=== PATIENT | female | born 1980 | race Caucasian/White ===

== ENCOUNTER 2019-02-12 03:37 | Emergency (ER) | payer OTHER ==
[~2019-02-12] VITALS: Ht 162.6 cm; Wt 111.1 kg
[2019-02-12 03:52] VITALS: BP 117/68
[2019-02-12 04:10] LABS: BILIRUBIN,URINE NEGATIVE (NEG); CLARITY,URINE CLEAR; COLOR,URINE AMBER; NITRITE,URINE NEGATIVE (NEG); PH,URINE 5.5; PROTEIN,URINE 30 mg/dL (NEG-TRACE); UROBILINOGEN,URINE 0.2 mg/dL (0.2 mg/dL)
[2019-02-12 04:21] LABS: BACTERIA,URINE FEW /HPF (0-FEW); RBC,URINE >40 /HPF (0-2); SQUAMOUS EPITHELIAL CELL,UR MOD /LPF; WBC,URINE 20-40 /HPF (0-4)
[2019-02-12 04:27] LABS: U PREG PATIENT NEGATIVE (NEG)
[2019-02-12] MEDS ORDERED: CEPH500C PO (04:35)
[2019-02-12] MEDS ORDERED: KETOROLAC 30 MG/ML VIAL. IM ONE (05:00)
[2019-02-12] MEDS ORDERED: CEPHALEXIN 250 MG CAPSULE. PO ONE (05:00)
--- NOTE | 2019-02-12 05:09 | PHYS DOC ---
Past Medical History Past Medical History: Depression Additional Past Surgical Histo: DEVIATED SEPTUM Alcohol Use: Rarely Drug Use: None Adult General Chief Complaint Chief Complaint: LOWER BACK PAIN OR INJURY HPI HPI Patient is a 38 year old f wtih back pain cramping period started two days ago back pain got worse today while working in the yard some hesitancy with urination no fever felt hot earlier no vomiting no abdo pain has been on meloxicam for low back pain in the past symptoms moderate nonradiating diffuse b/l lower back Review of Systems Review of Systems Constitutional: Eyes: Denies change in visual acuity, redness, or eye pain [] HENT: Denies nasal congestion or sore throat [] Respiratory: Denies cough or shortness of breath [] Neurologic: Denies headache, focal weakness or sensory changes [] All other systems were reviewed and found to be within normal limits, except as documented in this note. Current Medications Current Medications Current Medications Medications (Trade) Dose Ordered Sig/Brian Start Time Stop Time Status Last Admin Dose Admin Cephalexin HCl (Keflex) 500 mg 1X ONCE 02/12/19 05:00 02/12/19 05:00 DC 02/12/19 04:43 500 MG Ketorolac Tromethamine (Toradol 30mg Vial) 30 mg 1X ONCE 02/12/19 05:00 02/12/19 05:00 DC 02/12/19 04:43 30 MG Allergies Allergies Allergies Coded Allergies Type Severity Reaction Last Updated Verified codeine Allergy Intermediate 02/12/19 Yes metronidazole Allergy Intermediate 02/12/19 Yes naproxen Allergy Intermediate 02/12/19 Yes Physical Exam Physical Exam Constitutional: Well developed, well nourished, no acute distress, non-toxic appearance. [] HENT: Normocephalic, atraumatic, bilateral external ears normal, oropharynx moist, no oral exudates, nose normal. [] Eyes: PERRLA, EOMI, conjunctiva normal, no discharge. [] Neck: Normal range of motion, no tenderness, supple, no stridor. [] Lungs & Thorax: normal resp effort no incrsaed work of breathing Abdomen: Bowel sounds normal, soft, no tenderness, no masses, no pulsatile masses. [] Skin: Warm, dry, no erythema, no rash. [] Back:b/l CVA tenderness. [] Extremities: No tenderness, no cyanosis, no clubbing, ROM intact, no edema. [] Neurologic: Alert and oriented X 3, normal motor function, normal sensory function, no focal deficits noted. [] Psychologic: Affect normal, judgement normal, mood normal. [] Current Patient Data Vital Signs Vital Signs Date Time Temp Pulse Resp B/P (MAP) Pulse Ox O2 Delivery O2 Flow Rate FiO2 02/12/19 03:52 97.5 94 16 117/68 (84) 99 Room Air 97.5 Lab Values Laboratory Tests Test 02/12/19 03:40 Urine Collection Type Unknown Urine Color Basia Urine Clarity Clear Urine pH 5.5 Urine Specific [place] >=1.030 Urine Protein 30 mg/dL (NEG-TRACE) Urine Glucose (UA) Negative mg/dL (NEG) Urine Ketones (Stick) Negative mg/dL (NEG) Urine Blood Large (NEG) Urine Nitrite Negative (NEG) Urine Bilirubin Negative (NEG) Urine Urobilinogen Dipstick 0.2 mg/dL (0.2 mg/dL) Urine Leukocyte Esterase Small (NEG) Urine RBC >40 /HPF (0-2) Urine WBC 20-40 /HPF (0-4) Urine Squamous Epithelial Cells Mod /LPF Urine Bacteria Few /HPF (0-FEW) Urine Mucus Marked /LPF Urine Test Negative (NEG) EKG EKG [] Radiology/Procedures Radiology/Procedures [] Course & Med Decision Making Course & Med Decision Making Pertinent Labs and Imaging studies reviewed. (See chart for details) []38 yo f normal vitals crampy b/l low back pain on menstrual cycle upreg neg urine shows likely uti toradol, keflex return prec discussed Leland Disclaimer Leland Disclaimer This electronic medical record was generated, in whole or in part, using a voice recognition dictation system. Departure Departure Impression: Primary Impression: Urinary tract infection Disposition: 01 HOME, SELF-CARE Condition: STABLE Patient Instructions: Urinary Tract Infection, [id number] Scripts Cephalexin (CEPHALEXIN) 500 Mg Capsule 1 CAP PO QID, #28 CAP Prov: FRANCESCA LUCIANO MD 02/12/19 FRANCESCA LUCIANO MD Feb 12, 2019 05:09
== END 2019-02-12 04:45 | disposition home or self-care (01) ==
LOC: ER 03:37
DX: N39.0 Urinary tract infection, site not specified (principal); F32.9 Major depressive disorder, single episode, unspecified; Z88.8 Allergy status to other drugs, medicaments and biological substances; Z88.5 Allergy status to narcotic agent
CPT/HCPCS: 81001; 81025; 87086; 96372; 99284; J1885

== ENCOUNTER 2021-11-29 16:27 | Emergency (ER) | payer BC, OTHER ==
[~2021-11-29] VITALS: Ht 162.6 cm; Wt 110.0 kg
[~2021-11-29 16:27] MED LIST: CEPH500C PO
[2021-11-29 16:39] VITALS: BP 177/100
[2021-11-29] MEDS ORDERED: DOXY100C3 PO (16:51)
--- NOTE | 2021-11-29 16:56 | PHYS DOC ---
Past Medical History Past Medical History: Depression Past Surgical History: Other Additional Past Surgical Histo: DEVIATED SEPTUM Smoking Status: Never Smoker Alcohol Use: Rarely Drug Use: None General Adult EDM: Chief Complaint: ANIMAL BITE HPI: HPI: Patient is a 41 year old female who presents with her vaccinated cat was startled by a noise and ended up biting her on the left dorsal wrist/lower forearm area. There are 5 puncture wounds. Patient immediately flushed with soap and water and cleaned with peroxide and chlorhexidine. Patient then placed mupirocin ointment. Hypertension history. Rates her pain at a 5 out of 10. Denies focal weakness, numbness and tingling. Review of Systems: Review of Systems: Constitutional: Denies fever or chills. [] Eyes: Denies change in visual acuity. [] HENT: Denies nasal congestion or sore throat. [] Respiratory: Denies cough or shortness of breath. [] Cardiovascular: Denies chest pain or edema. [] GI: Denies abdominal pain, nausea, vomiting, bloody stools or diarrhea. [] : Denies dysuria. [] Musculoskeletal: Denies back pain or joint pain. + Left arm pain [] Integument: Denies rash. + Cat bite [] Neurologic: Denies headache, focal weakness or sensory changes. [] Endocrine: Denies polyuria or polydipsia. [] Lymphatic: Denies swollen glands. [] Psychiatric: Denies depression or anxiety. [] Heart Score: C/O Chest Pain: No Allergies: Allergies: Allergies Coded Allergies Type Severity Reaction Last Updated Verified amoxicillin Allergy Severe 11/29/21 Yes clavulanic acid Allergy Severe 11/29/21 Yes codeine Allergy Intermediate 02/12/19 Yes naproxen Allergy Intermediate 02/12/19 Yes Physical Exam: PE: Constitutional: Well developed, well nourished, no acute distress, non-toxic appearance. [] HENT: Normocephalic, atraumatic, bilateral external ears normal, oropharynx moist, no oral exudates, nose normal. [] Eyes: PERRLA, EOMI, conjunctiva normal, no discharge. [] Neck: Normal range of motion, no tenderness, supple, no stridor. [] Cardiovascular:Heart rate regular rhythm, no murmur [] Lungs & Thorax: Bilateral breath sounds clear to auscultation [] Abdomen: Bowel sounds normal, soft, no tenderness, no masses, no pulsatile masses. [] Skin: Warm, dry, no erythema, no rash. 5 very small puncture wounds to the dorsal left forearm. [] Back: No tenderness, no CVA tenderness. [] Extremities: Left dorsal wrist/lower forearm tenderness, no cyanosis, no clubbing, ROM intact, left dorsal wrist/lower forearm 2+ edema. [] Neurologic: Alert and oriented X 3, normal motor function, normal sensory function, no focal deficits noted. [] Psychologic: Affect normal, judgement normal, mood normal. [] Current Patient Data: Vital Signs: Vital Signs Date Time Temp Pulse Resp B/P (MAP) Pulse Ox O2 Delivery O2 Flow Rate FiO2 11/29/21 16:39 98.2 112 20 177/100 (125) 100 98.2 EKG: EKG: [] Radiology/Procedures: Radiology/Procedures: [] Course & Med Decision Making: Course & Med Decision Making Pertinent Labs and Imaging studies reviewed. (See chart for details) See HPI. Alert and orient x4. Ambulatory steady gait. Speaks in full clear sentences. Patient is allergic to penicillins so I will not give her Augmentin but I will give her doxycycline. Bleeding is stopped. Tenderness and swelling over the area of the bite on the left dorsal forearm. Full range of motion of the wrist. Cap refill less than 2 seconds. Radial pulse strong and present. Full strength and manager of internal audit. No signs of infection at this time. Patient is given a tetanus shot. [] Dragon Disclaimer: Dragon Disclaimer: This electronic medical record was generated, in whole or in part, using a voice recognition dictation system. Departure Departure Impression: Primary Impression: Cat bite of forearm Qualified Codes: S51.852A - Open bite of left forearm, initial encounter; W55.01XA - Bitten by cat, initial encounter Disposition: HOME / SELF CARE / HOMELESS Condition: STABLE Referrals: FRANKIE RIVERA (PCP) Patient Instructions: Animal Bite Additional Instructions: Watch for signs of infection such as redness, drainage, increased pain, fever. Take medication as prescribed and with food. Follow-up with your primary care physician if you are not any better in the next 48 hours or he can come back here for a wound recheck. Ibuprofen for pain. Can also use ice to help with swelling. Scripts Doxycycline Hyclate (DOXYCYCLINE HYCLATE) 100 Mg Capsule 1 CAP PO BID, #20 CAP Prov: SETH NGUYEN APRN 11/29/21 SETH NGUYEN APRN November 29, 2021 16:56
[2021-11-29] MEDS ORDERED: DIPHTH,PERTUSS(ACELL),TET TOX 0.5 ML DISP.SYRIN. VAX IM ONE (17:00)
== END 2021-11-29 17:13 | disposition home or self-care (01) ==
LOC: ER 16:27
DX: S51.852A Open bite of left forearm, initial encounter (principal); Z88.1 Allergy status to other antibiotic agents; Z88.5 Allergy status to narcotic agent; Z88.8 Allergy status to other drugs, medicaments and biological substances; W55.01XA Bitten by cat, initial encounter; Y93.89 Activity, other specified; Y92.89 Other specified places as the place of occurrence of the external cause; Y99.8 Other external cause status
CPT/HCPCS: 90471; 90715; 99283-25

== ENCOUNTER 2021-12-01 06:53 | Observation (INO) | payer BC ==
[~2021-12-01] VITALS: Ht 162.6 cm; Wt 118.5 kg
[~2021-12-01 06:53] MED LIST changes: +DOXY100C3 PO
[2021-12-01] MEDS ORDERED: AMPICILLIN/SULBACTAM 3 GM in IV NORMAL SALINE 100ML 100 ML IV ONE (07:15)
--- NOTE | 2021-12-01 07:25 | PHYS DOC ---
Past Medical History Past Medical History: Depression Past Surgical History: Other Additional Past Surgical Histo: DEVIATED SEPTUM Smoking Status: Never Smoker Alcohol Use: None Drug Use: None General Adult EDM: Chief Complaint: WOUND RECHECK/SUTURE REMOVAL HPI: HPI: Patient is a 41 year old female who presents to the emergency department for reevaluation of a cat bite. Patient states that her cat bit her on the left wrist on Tuesday. She presented here to the emergency department and at that time had her tetanus updated, and was given Keflex and a prescription for doxycycline. She states she has been taking her doxycycline but this morning woke up with a significant increase in pain and noticed some surrounding redness to the bite area. Given this she decided to present to the emergency department for evaluation. She denies having any fevers or chills. She denies any nausea or vomiting. She denies any swollen lymph nodes. Review of Systems: Review of Systems: Constitutional: Denies fever or chills. [] Eyes: Denies change in visual acuity. [] HENT: Denies nasal congestion or sore throat. [] Respiratory: Denies cough or shortness of breath. [] Cardiovascular: Denies chest pain or edema. [] GI: Denies abdominal pain, nausea, vomiting, bloody stools or diarrhea. [] : Denies dysuria. [] Musculoskeletal: Denies back pain. [] Integument: Denies rash. [] Neurologic: Denies headache, focal weakness or sensory changes. [] Endocrine: Denies polyuria or polydipsia. [] Lymphatic: Denies swollen glands. [] Psychiatric: Denies depression or anxiety. [] Heart Score: C/O Chest Pain: No Family History: Family History: Noncontributory Current Medications: Current Medications Medications (Trade) Dose Ordered Sig/Brian Start Time Stop Time Status Last Admin Dose Admin Ampicillin Sodium/ Sulbactam Sodium 3 gm/Sodium Chloride 100 ml @ 200 mls/hr 1X ONCE 12/01/21 07:15 12/01/21 07:44 UNV Allergies: Allergies: Allergies Coded Allergies Type Severity Reaction Last Updated Verified amoxicillin Allergy Severe 11/29/21 Yes clavulanic acid Allergy Severe 11/29/21 Yes codeine Allergy Intermediate 02/12/19 Yes naproxen Allergy Intermediate 02/12/19 Yes Physical Exam: PE: Constitutional: Well developed, well nourished, no acute distress, non-toxic appearance. [] HENT: Normocephalic, atraumatic, bilateral external ears normal, oropharynx moist, no oral exudates, nose normal. [] Eyes: PERRLA, EOMI, conjunctiva normal, no discharge. [] Neck: Normal range of motion, no tenderness, supple, no stridor. [] Cardiovascular:Heart rate regular rhythm, no murmur [] Lungs & Thorax: Bilateral breath sounds clear to auscultation [] Abdomen: Bowel sounds normal, soft, no tenderness, no masses, no pulsatile masses. [] Skin: There are 2 puncture wounds to the dorsal surface of the left wrist. There i surrounding cellulitis. Patient does have tenderness to palpation proximally to the elbow and distally to the hand. There is swelling also noted.. [] Back: No tenderness, no CVA tenderness. [] Extremities: No tenderness, no cyanosis, no clubbing, ROM intact, no edema. [] Neurologic: Alert and oriented X 3, normal motor function, normal sensory function, no focal deficits noted. [] Psychologic: Affect normal, judgement normal, mood normal. [] Current Patient Data: Labs: Laboratory Tests Test 12/01/21 07:34 White Blood Count 8.0 x10^3/uL Red Blood Count 3.98 x10^6/uL Hemoglobin 11.7 g/dL Hematocrit 34.9 % Mean Corpuscular Volume 88 fL Mean Corpuscular Hemoglobin 30 pg Mean Corpuscular Hemoglobin Concent 34 g/dL Red Cell Distribution Width 13.5 % Platelet Count 343 x10^3/uL Neutrophils (%) (Auto) 64 % Lymphocytes (%) (Auto) 29 % Monocytes (%) (Auto) 5 % Eosinophils (%) (Auto) 1 % Basophils (%) (Auto) 1 % Neutrophils # (Auto) 5.2 x10^3/uL Lymphocytes # (Auto) 2.3 x10^3/uL Monocytes # (Auto) 0.4 x10^3/uL Eosinophils # (Auto) 0.1 x10^3/uL Basophils # (Auto) 0.1 x10^3/uL Sodium Level 140 mmol/L Potassium Level 3.6 mmol/L Chloride Level 104 mmol/L Carbon Dioxide Level 24 mmol/L Anion Gap 12 Blood Urea Nitrogen 18 mg/dL Creatinine 0.8 mg/dL Estimated GFR (Cockcroft-Gault) 79.9 Glucose Level 103 mg/dL Calcium Level 8.3 mg/dL Current Medications Medications (Trade) Dose Ordered Sig/Brian Route PRN Reason Start Time Stop Time Status Last Admin Dose Admin Ampicillin Sodium/ Sulbactam Sodium 3 gm/Sodium Chloride 100 ml @ 200 mls/hr 1X ONCE IV 12/01/21 07:15 12/01/21 07:44 DC 12/01/21 08:41 Morphine Sulfate (Morphine Sulfate) 2 mg 1X ONCE IVP 12/01/21 08:45 12/01/21 08:50 DC 12/01/21 09:01 Acetaminophen (Tylenol) 650 mg PRN Q6HRS PRN PO MILD PAIN / TEMP > 100.3'F 12/01/21 09:15 12/01/21 10:15 DC Ondansetron HCl (Zofran) 4 mg PRN Q4HRS PRN IVP NAUSEA/VOMITING 12/01/21 09:15 12/01/21 10:15 DC Ondansetron HCl (Zofran Odt) 4 mg PRN Q4HRS PRN PO NAUSEA 12/01/21 09:15 12/01/21 10:15 DC Ampicillin Sodium/ Sulbactam Sodium 3 gm/Sodium Chloride 100 ml @ 200 mls/hr Q6HRS IV 12/01/21 12:00 12/01/21 10:15 DC Vital Signs: Vital Signs Date Time Temp Pulse Resp B/P (MAP) Pulse Ox O2 Delivery O2 Flow Rate FiO2 12/01/21 07:11 98.2 93 16 161/84 (109) 99 Room Air 98.2 EKG: EKG: [] Radiology/Procedures: Radiology/Procedures: EXAM: XR FOREARM_LEFT 2 VIEWS, XR HAND_LEFT 2 VIEWS 12/01/2021 7:20 AM CLINICAL INDICATION: Cat bite COMPARISON: None TECHNIQUE: AP and lateral views of the left forearm. PA and lateral views of the left hand. FINDINGS: Left forearm: No acute fracture. Alignment is normal. Joint spaces are maintained. There is no radiopaque foreign body. Left hand: No acute fracture. Alignment is normal. Joint spaces are maintained. Mild dorsal soft tissue swelling at the wrist and distal forearm. No radiopaque foreign body. IMPRESSION: No acute osseous abnormality or radiopaque foreign body. Electronically signed by: Kelly Mendoza MD (12/01/2021 7:54 AM) [facility] Course & Med Decision Making: Course & Med Decision Making Pertinent Labs and Imaging studies reviewed. (See chart for details) [] Dragon Disclaimer: Dragon Disclaimer: This electronic medical record was generated, in whole or in part, using a voice recognition dictation system. Departure Departure Impression: Primary Impression: Cat bite of forearm Additional Impression: Cellulitis of forearm Disposition: ADMITTED INPATIENT Condition: STABLE Referrals: FRANKIE RIVERA (PCP) DEREK PURCELL MD December 01, 2021 07:25
[2021-12-01 07:43] LABS: BASO # 0.1 x10^3/uL (0.0-0.2); BASO % 1 % (0-3); EOS # 0.1 x10^3/uL (0.0-0.7); EOS % 1 % (0-3); HEMATOCRIT 34.9 % (36.0-47.0); HEMOGLOBIN 11.7 g/dL (12.0-15.5); LYMPH # 2.3 x10^3/uL (1.0-4.8); LYMPH % 29 % (24-48); MEAN CORPUSCULAR HEMOGLOBIN 30 pg (25-35); MEAN CORPUSCULAR HGB CONC 34 g/dL (31-37); MEAN CORPUSCULAR VOLUME 88 fL (79-100); MONO # 0.4 x10^3/uL (0.0-1.1); MONO % 5 % (0-9); NEUT # 5.2 x10^3/uL (1.8-7.7); NEUT % 64 % (31-73); PLATELET COUNT 343 x10^3/uL (140-400); RED BLOOD COUNT 3.98 x10^6/uL (3.50-5.40); RED CELL DISTRIBUTION WIDTH 13.5 % (11.5-14.5)
[2021-12-01 07:55] LABS: CALCIUM 8.3 mg/dL (8.5-10.1); CREATININE 0.8 mg/dL (0.6-1.0); GFR 79.9; POTASSIUM 3.6 mmol/L (3.5-5.1)
--- NOTE | 2021-12-01 07:57 | RAD ---
EXAM: XR FOREARM_LEFT 2 VIEWS, XR HAND_LEFT 2 VIEWS 12/01/2021 7:20 AM CLINICAL INDICATION: Cat bite COMPARISON: None TECHNIQUE: AP and lateral views of the left forearm. PA and lateral views of the left hand. FINDINGS: Left forearm: No acute fracture. Alignment is normal. Joint spaces are maintained. There is no radiop aque foreign body. Left hand: No acute fracture. Alignment is normal. Joint spaces are maintained. Mild dorsal soft tiss ue swelling at the wrist and distal forearm. No radiopaque foreign body. IMPRESSION: No acute osseous abnormality or radiopaque foreign body. Electronically signed by: Kelly Mendoza MD (12/01/2021 7:54 AM) [facility]
[2021-12-01] MEDS ORDERED: MORPHINE SULFATE 2 MG/ML INJ. IVP ONE (08:45)
[2021-12-01] MEDS ORDERED: ONDANSETRON ODT 4 MG TAB.RAPDIS. PO PRN (09:15)
[2021-12-01] MEDS ORDERED: ONDANSETRON PF 4 MG/2 ML VIAL. IVP PRN (09:15)
[2021-12-01] MEDS ORDERED: HYDROcodone/APAP 5/325MG 1 TAB TABLET PO PRN (13:15)
[2021-12-01] MEDS: traMADol 50 MG TABLET PO PRN ×2 (13:19→19:19)
[2021-12-01] MEDS: ACETAMINOPHEN 325 MG TABLET. PO PRN ×2 (13:21→20:35)
[2021-12-01] MEDS ORDERED: TRAM100T10 PO (13:35)
[2021-12-01] MEDS ORDERED: LOSA-73 PO (13:35)
[2021-12-01] MEDS ORDERED: FLUO20CA22 PO (13:35)
[2021-12-01 15:00] VITALS: BP 118/65
[2021-12-01] MEDS: AMPICILLIN/SULBACTAM 3 GM in IV NORMAL SALINE 100ML 100 ML IV SCH ×2 (15:00→21:21)
--- NOTE | 2021-12-01 15:26 | PDOC1 ---
History and Physical Date of Admission Date of Admission DATE: 12/01/21 TIME: 15:16 Identification/Chief Complaint Chief Complaint Left hand pain, cat bite Source Source: Patient History of Present Illness History of Present Illness Ms Sharpe is a 41 yo female with PMHx HTN who comes to the ED c/o worsening swelling left hand pain, cat bite. Initially seen on 11/29/2021. She had tetanus and in ED took PO Keflex and a prescription for doxycycline 100 mg twice daily which she has been taking but this morning woke up with more pain and redness and swelling at the bite area. Redness passed beyond her wrist and the dorsum of her hand bite is on the radial surface of her left arm central necrosis no discharge. She does have some left thumb pain no numbness. The cat was fully vaccinated. Patient has had some chills no actual fevers. Labs WBC 8, Hb 11.7, platelets 343, NA 140, K3.6, BUN 18, CR 0.8, calcium 8.3, hand radiograph with no foreign body no osseous abnormalities Past Medical History Cardiovascular: HTN Past Surgical History Past Surgical History: Other (Deviated septum polypectomy) Family History Family History: Hypertension Social History Smoke: No ALCOHOL: rare Drugs: None Current Problem List Problem List Problems Medical Problems: (1) Cat bite Status: Acute (2) Cat bite of forearm Status: Acute (3) Cellulitis Status: Acute (4) Cellulitis of forearm Status: Acute Current Medications Current Medications Current Medications Ampicillin Sodium/ Sulbactam Sodium 3 gm/Sodium Chloride 100 ml @ 200 mls/hr 1X ONCE IV Last administered on 12/01/21at 08:41; Start 12/01/21 at 07:15; Stop 12/01/21 at 07:44; Status DC Morphine Sulfate (Morphine Sulfate) 2 mg 1X ONCE IVP Last administered on 12/01/21at 09:01; Start 12/01/21 at 08:45; Stop 12/01/21 at 08:50; Status DC Acetaminophen (Tylenol) 650 mg PRN Q6HRS PRN PO MILD PAIN / TEMP > 100.3'F Last administered on 12/01/21at 13:21; Start 12/01/21 at 09:15 Ondansetron HCl (Zofran) 4 mg PRN Q4HRS PRN IVP NAUSEA/VOMITING; Start 12/01/21 at 09:15 Ondansetron HCl (Zofran Odt) 4 mg PRN Q4HRS PRN PO NAUSEA; Start 12/01/21 at 09:15 Ampicillin Sodium/ Sulbactam Sodium 3 gm/Sodium Chloride 100 ml @ 200 mls/hr Q6HRS IV ; Start 12/01/21 at 12:00 Tramadol HCl (Ultram) 100 mg PRN Q6HRS PRN PO PAIN Last administered on 12/01/21at 13:19; Start 12/01/21 at 13:15 Acetaminophen/ Hydrocodone Bitart (Lortab 5/325) 1 tab PRN Q6HRS PRN PO PAIN; Start 12/01/21 at 13:15 Active Scripts Active Doxycycline Hyclate 100 Mg Capsule 1 Cap PO BID Keflex (Cephalexin) 500 Mg Capsule 1 Cap PO QID Reported Tramadol Hcl 100 Mg Tbmp.24hr 100 Mg PO Q6H PRN Fluoxetine Hcl 20 Mg Capsule 2 Cap PO DAILY Losartan Potassium 50 Mg Tablet 50 Mg PO QHS Allergies Allergies: Coded Allergies: amoxicillin (Verified Allergy, Severe, 11/29/21) clavulanic acid (Verified Allergy, Severe, 11/29/21) codeine (Verified Allergy, Intermediate, 02/12/19) naproxen (Verified Allergy, Intermediate, 02/12/19) ROS General: YES: Chills; No: Night Sweats, Fatigue, Malaise, Appetite, Other PSYCHOLOGICAL ROS: No: Anxiety, Behavioral Disorder, Concentration difficultie, Decreased libido, Depression, Disorientation, Hallucinations, Hostility, Irritablity, Memory difficulties, Mood Swings, Obsessive thoughts, Physical abuse, Sexual abuse, Sleep disturbances, Suicidal ideation, Other Eyes: No Blurry vision, No Decreased vision, No Double vision, No Dry eyes, No Excessive tearing, No Eye Pain, No Itchy Eyes, No Loss of vision, No Photophobia, No Scotomata, No Uses contacts, No Uses glasses, No Other HEENT: No: Heacaches, Visual Changes, Hearing change, Nasal congestion, Nasal discharge, Oral lesions, Sinus pain, Sore Throat, Epistaxis, Sneezing, Snoring, Tinnitus, Vertigo, Vocal changes, Other ALLERGY AND IMMUNOLOGY: No: Hives, Insect Bite Sensitivity, Itchy/Watery Eyes, Nasal Congestion, Post Nasal Drip, Seasonal Allergies, Other Hematological and Lymphatic: No: Bleeding Problems, Blood Clots, Blood Transfusions, Brusing, Night Sweats, Pallor, Swollen Lymph Nodes, Other ENDOCRINE: No: Breast Changes, Galactorrhea, Hair Pattern Changes, Hot Flashes, Malaise/lethargy, Mood Swings, Palpitations, Polydipsia/polyuria, Skin Changes, Temperature Intolerance, Unexpected Weight Changes, Other Breast: No New/Changing Breast Lumps, No Nipple changes, No Nipple discharge, No Other Respiratory: No: Cough, Hemoptysis, Orthopnea, Pleuritic Pain, Shortness of breath, SOB with excertion, Sputum Changes, Stridor, Tachypnea, Wheezing, Other Cardiovascular: No Chest Pain, No Palpitations, No Orthopnea, No Paroxysmal Noc. Dyspnea, No Edema, No Lt Headedness, No Other Gastrointestinal: No Nausea, No Vomiting, No Abdominal Pain, No Diarrhea, No Constipation, No Melena, No Hematochezia, No Other Genitourinary: No Dysuria, No Frequency, No Incontinence, No Hematuria, No Retention, No Discharge, No Urgency, No Pain, No Flank Pain, No Other, No , No , No , No , No , No , No Musculoskeletal: Yes Joint Pain, Yes Joint Stiffness, Yes Joint Swelling; No Gait Disturbance, No Muscle Pain, No Muscular Weakness, No Pain In:, No Swelling In:, No Other Neurological: No Behavorial Changes, No Bowel/Bladder ControlChng, No Confusion, No Dizziness, No Gait Disturbance, No Headaches, No Impaired Coord/balance, No Memory Loss, No Numbness/Tingling, No Seizures, No Speech Problems, No Tremors, No Visual Changes, No Weakness, No Other Skin: Yes Rash, Yes Skin Lesion Changes; No Dry Skin, No Eczema, No Hair Changes, No Lumps, No Mole Changes, No Mottling, No Nail Changes, No Pruritus, No Other, No Acne Physical Exam General: Alert, Oriented X3, Cooperative, mild distress HEENT: Atraumatic, PERRLA, EOMI, Mucous membr. moist/pink Lungs: Clear to auscultation, Normal air movement Heart: S1S2, RRR, no thrills, no rubs, no gallops, no murmurs Abdomen: Normal bowel sounds, Soft, No tenderness, No hepatosplenomegaly, No masses Extremities: No clubbing, No cyanosis, No edema, Normal pulses Skin: Other (8 x 4 cm redness crossing the left wrist on dorsum of hand and mid forearm.) Neuro: Normal gait, Normal speech, Strength at 5/5 X4 ext, Normal tone, Sensation intact, Cranial nerves 3-12 NL, Reflexes 2+ Psych/Mental Status: Mental status NL, Mood NL Vitals Vitals Vital Signs Date Time Temp Pulse Resp B/P (MAP) Pulse Ox O2 Delivery O2 Flow Rate FiO2 12/01/21 15:00 98.1 78 16 118/65 (82) 95 Room Air 98.1 Labs Labs Laboratory Tests Test 12/01/21 07:34 White Blood Count 8.0 x10^3/uL (4.0-11.0) Red Blood Count 3.98 x10^6/uL (3.50-5.40) Hemoglobin 11.7 g/dL (12.0-15.5) Hematocrit 34.9 % (36.0-47.0) Mean Corpuscular Volume 88 fL (79-100) Mean Corpuscular Hemoglobin 30 pg (25-35) Mean Corpuscular Hemoglobin Concent 34 g/dL (31-37) Red Cell Distribution Width 13.5 % (11.5-14.5) Platelet Count 343 x10^3/uL (140-400) Neutrophils (%) (Auto) 64 % (31-73) Lymphocytes (%) (Auto) 29 % (24-48) Monocytes (%) (Auto) 5 % (0-9) Eosinophils (%) (Auto) 1 % (0-3) Basophils (%) (Auto) 1 % (0-3) Neutrophils # (Auto) 5.2 x10^3/uL (1.8-7.7) Lymphocytes # (Auto) 2.3 x10^3/uL (1.0-4.8) Monocytes # (Auto) 0.4 x10^3/uL (0.0-1.1) Eosinophils # (Auto) 0.1 x10^3/uL (0.0-0.7) Basophils # (Auto) 0.1 x10^3/uL (0.0-0.2) Sodium Level 140 mmol/L (136-145) Potassium Level 3.6 mmol/L (3.5-5.1) Chloride Level 104 mmol/L (98-107) Carbon Dioxide Level 24 mmol/L (21-32) Anion Gap 12 (6-14) Blood Urea Nitrogen 18 mg/dL (7-20) Creatinine 0.8 mg/dL (0.6-1.0) Estimated GFR (Cockcroft-Gault) 79.9 Glucose Level 103 mg/dL (70-99) Calcium Level 8.3 mg/dL (8.5-10.1) Laboratory Tests Test 12/01/21 07:34 White Blood Count 8.0 x10^3/uL (4.0-11.0) Red Blood Count 3.98 x10^6/uL (3.50-5.40) Hemoglobin 11.7 g/dL (12.0-15.5) Hematocrit 34.9 % (36.0-47.0) Mean Corpuscular Volume 88 fL (79-100) Mean Corpuscular Hemoglobin 30 pg (25-35) Mean Corpuscular Hemoglobin Concent 34 g/dL (31-37) Red Cell Distribution Width 13.5 % (11.5-14.5) Platelet Count 343 x10^3/uL (140-400) Neutrophils (%) (Auto) 64 % (31-73) Lymphocytes (%) (Auto) 29 % (24-48) Monocytes (%) (Auto) 5 % (0-9) Eosinophils (%) (Auto) 1 % (0-3) Basophils (%) (Auto) 1 % (0-3) Neutrophils # (Auto) 5.2 x10^3/uL (1.8-7.7) Lymphocytes # (Auto) 2.3 x10^3/uL (1.0-4.8) Monocytes # (Auto) 0.4 x10^3/uL (0.0-1.1) Eosinophils # (Auto) 0.1 x10^3/uL (0.0-0.7) Basophils # (Auto) 0.1 x10^3/uL (0.0-0.2) Sodium Level 140 mmol/L (136-145) Potassium Level 3.6 mmol/L (3.5-5.1) Chloride Level 104 mmol/L (98-107) Carbon Dioxide Level 24 mmol/L (21-32) Anion Gap 12 (6-14) Blood Urea Nitrogen 18 mg/dL (7-20) Creatinine 0.8 mg/dL (0.6-1.0) Estimated GFR (Cockcroft-Gault) 79.9 Glucose Level 103 mg/dL (70-99) Calcium Level 8.3 mg/dL (8.5-10.1) Images Images FOREARM LEFT EXAM: XR FOREARM_LEFT 2 VIEWS, XR HAND_LEFT 2 VIEWS 12/01/2021 7:20 AM CLINICAL INDICATION: Cat bite COMPARISON: None TECHNIQUE: AP and lateral views of the left forearm. PA and lateral views of the left hand. FINDINGS: Left forearm: No acute fracture. Alignment is normal. Joint spaces are maintained. There is no radiopaque foreign body. Left hand: No acute fracture. Alignment is normal. Joint spaces are maintained. Mild dorsal soft tissue swelling at the wrist and distal forearm. No radiopaque foreign body. IMPRESSION: No acute osseous abnormality or radiopaque foreign body. VTE Prophylaxis Ordered VTE Prophylaxis Devices: No VTE Pharmacological Prophylaxi: No Assessment/Plan Assessment/Plan Left arm cellulitis -now including the hand and wrist. Will consult Ortho given thumb pain concern for tenosynovitis. IV Unasyn. Her Augmentin allergy may not actually be an allergy per patient. Left arm pain - due to above -tramadol as needed HTN - cont home meds FEN - Regular diet PPX - ambulatory, low risk FULL CODE Dispo - inpatient, failed outpatient antibiotic therapy Justifications for Admission Other Justification TURNER MCKEON MD December 01, 2021 15:26
--- NOTE | 2021-12-01 16:55 | RAD ---
INDICATION: Reason: evaluate for fluid collection, near wrist / Spl. Instructions: / History: Anima l bite with swelling COMPARISON: None. IMPRESSION: Soft tissue ultrasound: Focused ultrasound images of the left wrist area at the region of swelling. Edema is seen within the soft tissues without a well-defined drainable fluid collection at this time. Electronically signed by: Nelson Zhu MD (12/01/2021 4:53 PM) [id number]
[2021-12-01 19:15] VITALS: BP 132/86
[2021-12-01] MEDS ORDERED: [UNRECOGNIZED DRUG - CODE] PO (20:48)
[2021-12-01] MEDS ORDERED: KETOROLAC 15 MG/ML VIAL. IVP PRN (21:45)
[2021-12-01 23:12] VITALS: BP 115/77
[2021-12-02] MEDS: AMPICILLIN/SULBACTAM 3 GM in IV NORMAL SALINE 100ML 100 ML IV SCH ×2 (05:53)
[2021-12-02] MEDS: traMADol 50 MG TABLET PO PRN (06:32)
[2021-12-02] MEDS: ACETAMINOPHEN 325 MG TABLET. PO PRN (06:32)
[2021-12-02 07:00] VITALS: BP 127/71
--- NOTE | 2021-12-02 07:03 | PDOC ---
PROGRESS NOTES Date of Service DATE: 12/02/21 TIME: 07:00 Subjective Subjective Much better in last 12 hours. Objective Vital Signs Vital Signs Date Time Temp Pulse Resp B/P (MAP) Pulse Ox O2 Delivery O2 Flow Rate FiO2 12/01/21 23:12 98.6 85 18 115/77 (90) 91 Room Air 98.6 Physical Exam LUE: nvi distally; able to actively flex/extend wrist and fingers; very ttp over dorsal distal forearm in area where bite is; erythema limited to [place] drawn around area Labs Laboratory Tests Test 12/01/21 07:34 White Blood Count 8.0 x10^3/uL (4.0-11.0) Red Blood Count 3.98 x10^6/uL (3.50-5.40) Hemoglobin 11.7 g/dL (12.0-15.5) Hematocrit 34.9 % (36.0-47.0) Mean Corpuscular Volume 88 fL (79-100) Mean Corpuscular Hemoglobin 30 pg (25-35) Mean Corpuscular Hemoglobin Concent 34 g/dL (31-37) Red Cell Distribution Width 13.5 % (11.5-14.5) Platelet Count 343 x10^3/uL (140-400) Neutrophils (%) (Auto) 64 % (31-73) Lymphocytes (%) (Auto) 29 % (24-48) Monocytes (%) (Auto) 5 % (0-9) Eosinophils (%) (Auto) 1 % (0-3) Basophils (%) (Auto) 1 % (0-3) Neutrophils # (Auto) 5.2 x10^3/uL (1.8-7.7) Lymphocytes # (Auto) 2.3 x10^3/uL (1.0-4.8) Monocytes # (Auto) 0.4 x10^3/uL (0.0-1.1) Eosinophils # (Auto) 0.1 x10^3/uL (0.0-0.7) Basophils # (Auto) 0.1 x10^3/uL (0.0-0.2) Erythrocyte Sedimentation Rate 25 (0-25) Sodium Level 140 mmol/L (136-145) Potassium Level 3.6 mmol/L (3.5-5.1) Chloride Level 104 mmol/L (98-107) Carbon Dioxide Level 24 mmol/L (21-32) Anion Gap 12 (6-14) Blood Urea Nitrogen 18 mg/dL (7-20) Creatinine 0.8 mg/dL (0.6-1.0) Estimated GFR (Cockcroft-Gault) 79.9 Glucose Level 103 mg/dL (70-99) Calcium Level 8.3 mg/dL (8.5-10.1) C-Reactive Protein, Quantitative 18.4 mg/L (0-3.3) Laboratory Tests Test 12/01/21 07:34 White Blood Count 8.0 x10^3/uL (4.0-11.0) Red Blood Count 3.98 x10^6/uL (3.50-5.40) Hemoglobin 11.7 g/dL (12.0-15.5) Hematocrit 34.9 % (36.0-47.0) Mean Corpuscular Volume 88 fL (79-100) Mean Corpuscular Hemoglobin 30 pg (25-35) Mean Corpuscular Hemoglobin Concent 34 g/dL (31-37) Red Cell Distribution Width 13.5 % (11.5-14.5) Platelet Count 343 x10^3/uL (140-400) Neutrophils (%) (Auto) 64 % (31-73) Lymphocytes (%) (Auto) 29 % (24-48) Monocytes (%) (Auto) 5 % (0-9) Eosinophils (%) (Auto) 1 % (0-3) Basophils (%) (Auto) 1 % (0-3) Neutrophils # (Auto) 5.2 x10^3/uL (1.8-7.7) Lymphocytes # (Auto) 2.3 x10^3/uL (1.0-4.8) Monocytes # (Auto) 0.4 x10^3/uL (0.0-1.1) Eosinophils # (Auto) 0.1 x10^3/uL (0.0-0.7) Basophils # (Auto) 0.1 x10^3/uL (0.0-0.2) Erythrocyte Sedimentation Rate 25 (0-25) Sodium Level 140 mmol/L (136-145) Potassium Level 3.6 mmol/L (3.5-5.1) Chloride Level 104 mmol/L (98-107) Carbon Dioxide Level 24 mmol/L (21-32) Anion Gap 12 (6-14) Blood Urea Nitrogen 18 mg/dL (7-20) Creatinine 0.8 mg/dL (0.6-1.0) Estimated GFR (Cockcroft-Gault) 79.9 Glucose Level 103 mg/dL (70-99) Calcium Level 8.3 mg/dL (8.5-10.1) C-Reactive Protein, Quantitative 18.4 mg/L (0-3.3) Imaging US shows no fluid pockets that could be irrigated and debrided Assessment Assessment LUE cat bite, improved Plan Plan of Care Plan per ID. If patient worsens, she will return to the hospital. As of right now, she doesnt have anything that surgery could improve. F/u prn Thank you for the consult Office: [phone] Full consult to follow. Justicifation of Admission Dx: Justifications for Admission: Justification of Admission Dx: Yes Cellulitis: Cellulitis AMY MALDONADO MD December 02, 2021 07:03
--- NOTE | 2021-12-02 07:57 | PDOC2 ---
CONSULT Date of Consult Date of Consult DATE: 12/02/21 TIME: 07:49 Reason for Consult Reason for Consult: Left wrist cat bite History of Present Illness Reason for Visit: Patient reports that on Tuesday, her cat bit her on the left wrist at home. She says that about 30 or 40 minutes later she went to the ER at [facility] and was given doxycycline. She says that she took this Tuesday night and then twice on Tuesday and then yesterday she continued to not get better so she returned to the ER. She was admitted for further treatment. She says that she had Toradol last night and her arm felt so much better. She says that the erythema has gotten better and her wrist feels better since she has been here getting treatment. She denies any other injury. She has had some associated headaches. No numbness or tingling or radicular symptoms. Past Medical History Past Medical History Hypertension and anxiety/depression Cardiovascular: HTN Past Surgical History Past Surgical History Nasal surgery 15 years ago Past Surgical History: Other (Deviated septum polypectomy) Family History Family History Noncontributory Family History: Hypertension Social History Social History Patient denies current or previous tobacco use. No alcohol use. 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 No ALCOHOL: rare Drugs: None Current Problem List Problem List Problems Medical Problems: (1) Cat bite Status: Acute (2) Cat bite of forearm Status: Acute (3) Cellulitis Status: Acute (4) Cellulitis of forearm Status: Acute Current Medications Current Medications Home medications: Losartan, fluoxetine and control She also has clonazepam for as needed anxiety. . RCurrent Medications Ampicillin Sodium/ Sulbactam Sodium 3 gm/Sodium Chloride 100 ml @ 200 mls/hr 1X ONCE IV Last administered on 12/01/21at 08:41; Start 12/01/21 at 07:15; Stop 12/01/21 at 07:44; Status DC Morphine Sulfate (Morphine Sulfate) 2 mg 1X ONCE IVP Last administered on 12/01/21at 09:01; Start 12/01/21 at 08:45; Stop 12/01/21 at 08:50; Status DC Acetaminophen (Tylenol) 650 mg PRN Q6HRS PRN PO MILD PAIN / TEMP > 100.3'F Last administered on 12/02/21at 06:32; Start 12/01/21 at 09:15 Ondansetron HCl (Zofran) 4 mg PRN Q4HRS PRN IVP NAUSEA/VOMITING Last adminis tered on 12/01/21at 23:07; Start 12/01/21 at 09:15 Ondansetron HCl (Zofran Odt) 4 mg PRN Q4HRS PRN PO NAUSEA; Start 12/01/21 at 09:15 Ampicillin Sodium/ Sulbactam Sodium 3 gm/Sodium Chloride 100 ml @ 200 mls/hr Q6HRS IV Last administered on 12/02/21at 05:53; Start 12/01/21 at 12:00 Tramadol HCl (Ultram) 100 mg PRN Q6HRS PRN PO PAIN Last administered on 12/02/21at 06:32; Start 12/01/21 at 13:15 Acetaminophen/ Hydrocodone Bitart (Lortab 5/325) 1 tab PRN Q6HRS PRN PO PAIN; Start 12/01/21 at 13:15 Fluoxetine HCl (PROzac) 40 mg DAILY PO ; Start 12/02/21 at 09:00 Losartan Potassium (Cozaar) 50 mg QHS PO ; Start 12/02/21 at 21:00 Non-Formulary Medication (Norethindrone AC-Eth Estradiol (Aurovela 21 1.5-30 Tablet)) 1 each DAILY PO ; Start 12/02/21 at 09:00 Ketorolac Tromethamine (Toradol 15mg Vial) 15 mg PRN Q6HRS PRN IVP INFLAMMATION Last administered on 12/01/21at 22:09; Start 12/01/21 at 21:45; Stop 12/06/21 at 21:44 Active Scripts Active Doxycycline Hyclate 100 Mg Capsule 1 Cap PO BID Keflex (Cephalexin) 500 Mg Capsule 1 Cap PO QID Reported Aurovela 21 1.5-30 Tablet (Norethindrone AC-Eth Estradiol) 1 Each Tablet 1 Each PO DAILY Tramadol Hcl 100 Mg Tbmp.24hr 100 Mg PO Q6H PRN Fluoxetine Hcl 20 Mg Capsule 2 Cap PO DAILY Losartan Potassium 50 Mg Tablet 50 Mg PO QHS Allergies Allergies: Coded Allergies: amoxicillin (Verified Allergy, Severe, 11/29/21) clavulanic acid (Verified Allergy, Severe, 11/29/21) codeine (Verified Allergy, Intermediate, 02/12/19) naproxen (Verified Allergy, Intermediate, 02/12/19) ROS Review of System Patient denies headache at this time but says that she had 1 last night. No blurry vision or double vision. No ringing in the ears or difficulty hearing. No difficulty swallowing. No thyroid problems or diabetes. No chest pain or shortness of breath. No abdominal pain. No constipation or diarrhea. No blood in the stool or urine. No dysuria. She does have a history of anxiety and depression. Physical Exam Physical Exam Patient is a pleasant 41-year-old female who appears well-developed, well- nourished and in no acute distress. She is nontoxic-appearing. She interacts with exam appropriately and is alert and oriented x3. Nonlabored breathing on room air. She is right-hand dominant. The left wrist has a [place] drawn around a ink spot indicating a puncture wound on the dorsal aspect of her left distal forearm. Minimal if any erythema. The area is mildly tender. There is mild swelling. No induration. This area slightly warmer than the rest of her arm. Neurovascularly intact in the hand. No pain with passive range of motion of the wrist. Vitals VITALS Vital Signs Date Time Temp Pulse Resp B/P (MAP) Pulse Ox O2 Delivery O2 Flow Rate FiO2 12/01/21 23:12 98.6 85 18 115/77 (90) 91 Room Air 98.6 Labs Labs Laboratory Tests Test 12/01/21 07:34 White Blood Count 8.0 x10^3/uL (4.0-11.0) Red Blood Count 3.98 x10^6/uL (3.50-5.40) Hemoglobin 11.7 g/dL (12.0-15.5) Hematocrit 34.9 % (36.0-47.0) Mean Corpuscular Volume 88 fL (79-100) Mean Corpuscular Hemoglobin 30 pg (25-35) Mean Corpuscular Hemoglobin Concent 34 g/dL (31-37) Red Cell Distribution Width 13.5 % (11.5-14.5) Platelet Count 343 x10^3/uL (140-400) Neutrophils (%) (Auto) 64 % (31-73) Lymphocytes (%) (Auto) 29 % (24-48) Monocytes (%) (Auto) 5 % (0-9) Eosinophils (%) (Auto) 1 % (0-3) Basophils (%) (Auto) 1 % (0-3) Neutrophils # (Auto) 5.2 x10^3/uL (1.8-7.7) Lymphocytes # (Auto) 2.3 x10^3/uL (1.0-4.8) Monocytes # (Auto) 0.4 x10^3/uL (0.0-1.1) Eosinophils # (Auto) 0.1 x10^3/uL (0.0-0.7) Basophils # (Auto) 0.1 x10^3/uL (0.0-0.2) Erythrocyte Sedimentation Rate 25 (0-25) Sodium Level 140 mmol/L (136-145) Potassium Level 3.6 mmol/L (3.5-5.1) Chloride Level 104 mmol/L (98-107) Carbon Dioxide Level 24 mmol/L (21-32) Anion Gap 12 (6-14) Blood Urea Nitrogen 18 mg/dL (7-20) Creatinine 0.8 mg/dL (0.6-1.0) Estimated GFR (Cockcroft-Gault) 79.9 Glucose Level 103 mg/dL (70-99) Calcium Level 8.3 mg/dL (8.5-10.1) C-Reactive Protein, Quantitative 18.4 mg/L (0-3.3) Images Images No fluid collection per ultrasound Assessment/Plan Assessment/Plan Left dorsal distal forearm cat bite with associated cellulitis Plan: We will defer to infectious disease for IV antibiotics. She can also continue with the Toradol since that has helped her. She can transition to Tylenol or ibuprofen as needed. She can also use warm compresses to the area if needed. No orthopedic intervention is indicated at this time. She can follow- up with us in our office as needed. If her condition worsens, please call orthopedics for new evaluation. Patient is happy with this plan. MERRILL ALONZO December 02, 2021 07:57
[2021-12-02] MEDS ORDERED: FLUoxetine HCL 20 MG CAPSULE PO SCH (09:00)
[2021-12-02] MEDS ORDERED: AUROVELA PO SCH (09:00)
[2021-12-02 11:00] VITALS: BP 118/68
--- NOTE | 2021-12-02 12:35 | DISCH ---
DISCHARGE INSTRUCTIONS Condition on Discharge Condition on Discharge: Stable Activity After Discharge Activity Instructions for Disc: Activity as tolerated Exercise Instruction after Dis: Walk 30 min, 5 x per week Driving Instructions after Dis: Do not drive today Diet after Discharge Diet after Discharge: Cardiac Follow-Up Follow up with: PCP within 2 weeks of discharge SEDA AREVALO MD December 02, 2021 12:35
[2021-12-02] MEDS ORDERED: AMOXICILLIN/K CLAV 875/125MG TABLET. PO SCH (14:00)
[2021-12-02] MEDS ORDERED: AMOX1TAB11 PO (14:13)
[2021-12-02] MEDS ORDERED: LOSARTAN POTASSIUM 50 MG TABLET. PO SCH (21:00)
--- NOTE | 2021-12-02 22:30 | CONS ---
DATE OF CONSULTATION: 12/02/2021 REQUESTING PHYSICIAN: Dr. Shore. REASON FOR CONSULTATION: Cat bite. HISTORY OF PRESENT ILLNESS: This is a 41-year-old female who had her own cat bite her on to the left wrist. The patient had been seen, was put on Keflex and doxy and it got worse. The patient also got tetanus immunization and it got worse, hence she came back and now she is on Unasyn and feeling much better. The patient denies any nausea, vomiting, diarrhea. Denies any fever. The patient's cat is fully vaccinated. PAST MEDICAL HISTORY: Positive for hypertension, obesity. SOCIAL HISTORY: Negative for smoking, alcohol, drug use. ALLERGIES: LISTED ALLERGIC TO AMOXICILLIN, BUT SHE IS CLEARLY TOLERATING UNASYN WITHOUT ANY PROBLEM. REVIEW OF SYSTEMS: As in HPI. All other systems reviewed are negative. PHYSICAL EXAMINATION: GENERAL: Alert, oriented female, not in distress. VITAL SIGNS: Stable, afebrile. HEENT: NAD. NECK: Supple, no JVP, no lymphadenopathy. LUNGS: Clear. HEART: S1, S2, regular. ABDOMEN: Soft, nontender, no organomegaly. EXTREMITIES: No edema, cyanosis. SKIN: Unremarkable except puncture wound on the left wrist, which is now the redness and swelling, has improved significantly that there is only dime size redness and tenderness present, where is no purulence. NEUROLOGIC: The patient is alert, awake, and appropriate. No focal neurologic deficit. LABORATORY DATA: White count is normal. BUN and creatinine is normal. CRP is 18.4. X-ray of the hand and ultrasound unremarkable. IMPRESSION: 1. Cat bite. The patient with cellulitis, which has improved significantly. 2. Hypertension. RECOMMENDATIONS: The patient can be discharged on p.o. Augmentin. The patient was educated about the remote possibility of going all the way down to the bone, it does not appear to be clinically, but if she gets worse, especially after finishing the antibiotics, then she needs to either come to me in the office or come back here and she will need MRI of the area. Thank you very much, Dr. Shore, for giving me opportunity to participate in this patient's care. CATRACHO/HERNÁN DR: CATRACHO/lillian TID: [id number]
--- NOTE | 2021-12-05 14:56 | PDOC3 ---
[facility]-Discharge Summary Date of Admission: Date of Admission: December 01, 2021 Date of Discharge: Date of Discharge: December 02, 2021 Discharge Diagnosis: Discharge Diagnosis: Left arm cellulitis -now including the hand and wrist. Will consult Ortho given thumb pain concern for tenosynovitis. IV Unasyn. Her Augmentin allergy may not actually be an allergy per patient. Left arm pain - due to above -tramadol as needed HTN - cont home meds Consults: Consults: Per ID: [id number]: The patient can be discharged on p.o. Augmentin. The patient was educated about the remote possibility of going all the way down to the bone, it does not appear to be clinically, but if she gets worse, especially after finishing the antibiotics, then she needs to either come to me in the office or come back here and she will need MRI of the area. per ORTHO: Plan: We will defer to infectious disease for IV antibiotics. She can also continue with the Toradol since that has helped her. She can transition to Tylenol or ibuprofen as needed. She can also use warm compresses to the area if needed. No orthopedic intervention is indicated at this time. She can follow- up with us in our office as needed. If her condition worsens, please call orthopedics for new evaluation. Patient is happy with this plan. Hospital Course: Hospital Course: 41 yo female with PMHx HTN who comes to the ED c/o worsening swelling left hand pain, cat bite. Initially seen on 11/29/2021. She had tetanus and in ED took PO Keflex and a prescription for doxycycline 100 mg twice daily which she has been taking but this morning woke up with more pain and redness and swelling at the bite area. Redness passed beyond her wrist and the dorsum of her hand bite is on the radial surface of her left arm central necrosis no discharge. She does have some left thumb pain no numbness. The cat was fully vaccinated. Patient has had some chills no actual fevers. Labs WBC 8, Hb 11.7, platelets 343, NA 140, K3.6, BUN 18, CR 0.8, calcium 8.3, hand radiograph with no foreign body no osseous abnormalities By day of discharge patient was clinically stable and ready for discharge. Evaluated by infectious disease and orthopedic surgery. No acute interventions needed. Patient will need to go home with antibiotics for 7 days. Rest of hospital course was uneventful. Disposition: Disposition/Orders: D/C to Home Activity: Activity: Resume previous activity Diet: Diet: Regular Medications: Home Meds Active Scripts Amoxicillin/Potassium Clav (AMOX TR-K CLV 875-125 MG TAB) 1 Each Tablet, 1 TAB PO BID for cellulitis for 7 Days, #14 TAB Prov:SEDA AREVALO MD 12/02/21 Reported Medications Norethindrone AC-Eth Estradiol (Aurovela 21 1.5-30 Tablet) 1 Each Tablet, 1 EACH PO DAILY for control, TAB 12/01/21 Tramadol Hcl (TRAMADOL HCL) 100 Mg Tbmp.24hr, 100 MG PO Q6H PRN for PAIN, TAB 0 Refills 12/01/21 Fluoxetine Hcl (FLUOXETINE HCL) 20 Mg Capsule, 2 CAP PO DAILY for Depression, #90 CAP 1 Refill 12/01/21 Losartan Potassium (LOSARTAN POTASSIUM) 50 Mg Tablet, 50 MG PO QHS for HYPERTENSION, TAB 12/01/21 Discontinued Scripts Doxycycline Hyclate (DOXYCYCLINE HYCLATE) 100 Mg Capsule, 1 CAP PO BID, #20 CAP Prov:SETH NGUYEN [employer] 11/29/21 Cephalexin (KEFLEX) 500 Mg Capsule, 1 CAP PO QID, #28 CAP Prov:FRANCESCA LUCIANO MD 02/12/19 Scheduled Amoxicillin/Potassium Clav (Amox Tr-K Clv 875-125 Mg Tab), 1 TAB PO BID Fluoxetine Hcl (Fluoxetine Hcl), 2 CAP PO DAILY, (Reported) Losartan Potassium (Losartan Potassium), 50 MG PO QHS, (Reported) Norethindrone AC-Eth Estradiol (Aurovela 21 1.5-30 Tablet), 1 EACH PO DAILY, (Reported) Scheduled PRN Tramadol Hcl (Tramadol Hcl), 100 MG PO Q6H PRN for PAIN, (Reported) Discontinued Medications Cephalexin (Keflex), 1 CAP PO QID Doxycycline Hyclate (Doxycycline Hyclate), 1 CAP PO BID Total Time: Total Time: Total time spent was 32 minutes in preparing scripts, discharge planning with SWI and RN and preparing this discharge summary Patient seen and examined on day of discharge. No acute abnormal findings. Justicifation of Admission Dx: Justifications for Admission: Justification of Admission Dx: Yes Cellulitis: Cellulitis SEDA AREVALO MD December 05, 2021 14:56
== END 2021-12-02 14:40 | disposition home or self-care (01) ==
LOC: ER 06:53 → 4 NORTH 09:15 → ER 10:15
PROVIDERS: ADMIT Internal Medicine; ATTEND Internal Medicine
DX: L03.114 Cellulitis of left upper limb (principal); I10 Essential (primary) hypertension; S51.851D Open bite of right forearm, subsequent encounter; S61.552D Open bite of left wrist, subsequent encounter; M79.602 Pain in left arm; F32.9 Major depressive disorder, single episode, unspecified; Z88.0 Allergy status to penicillin; Z79.899 Other long term (current) drug therapy; Z98.890 Other specified postprocedural states; Z88.1 Allergy status to other antibiotic agents; W55.01XD Bitten by cat, subsequent encounter; Y92.89 Other specified places as the place of occurrence of the external cause; Y93.89 Activity, other specified; Y99.8 Other external cause status
CPT/HCPCS: 36415; 73090; 73120; 76881; 80048; 85025; 85651; 86140; 96365; 96366; 96375; 96376; G0378; G0379; J0295; J1885; J2270; J2405; 99284-25